=== PATIENT | male | born 1960 | race Caucasian/White ===

== ENCOUNTER 2019-08-12 17:43 | Emergency (ER) | payer OTHER ==
[~2019-08-12] VITALS: Ht 175.3 cm; Wt 81.8 kg
[2019-08-12 18:05] VITALS: Ht 175.3 cm; Wt 81.8 kg
[2019-08-12] MEDS ORDERED: ATIVAN0.5 MG (18:05)
[2019-08-12 20:43] VITALS: BP 115/83
== END 2019-08-12 20:44 | disposition home or self-care (01) ==
LOC: D.ER 17:43
DX: S16.1XXA Strain of muscle, fascia and tendon at neck level, initial encounter (principal); F41.9 Anxiety disorder, unspecified; M50.30 Other cervical disc degeneration, unspecified cervical region

== ENCOUNTER 2019-10-08 13:42 | Emergency (ER) | payer OTHER ==
[~2019-10-08] VITALS: Ht 175.3 cm; Wt 81.8 kg
[~2019-10-08 13:42] MED LIST: ATIVAN0.5 MG
[2019-10-08 13:52] VITALS: Ht 175.3 cm; Wt 81.8 kg
[2019-10-08] MEDS ORDERED: CLEOCIN HCL300 MG PO (15:48)
[2019-10-08 16:05] VITALS: BP 114/81
== END 2019-10-08 16:07 | disposition home or self-care (01) ==
LOC: D.ER 13:42
DX: S61.532A Puncture wound without foreign body of left wrist, initial encounter (principal); Y92.9 Unspecified place or not applicable; Y93.9 Activity, unspecified; X58.XXXA Exposure to other specified factors, initial encounter

== ENCOUNTER 2019-11-05 16:44 | Observation (INO) | payer OTHER ==
[~2019-11-05] VITALS: Ht 175.3 cm; Wt 84.1 kg
[~2019-11-05 16:44] MED LIST changes: +CLEOCIN HCL300 MG PO
[2019-11-05 18:58] VITALS: BP 128/85; Ht 175.3 cm; Wt 84.1 kg
[2019-11-05 20:00] VITALS: BP 113/71
--- NOTE | 2019-11-05 21:00 | NUR ---
A&O X 4. AMBULATES AD DIANA. REPORTS PAIN LEVEL OF 6/10. VERBALIZED UNDERSTANDING OF NPO STATUS AFTER MIDNIGHT. CONSENTS SIGNED AND WITNESSED BY MYSELF AND SHASHI PITT. REMOVED FROM IV FOR HIBICLENS. NO FURTHER NEEDS VOICED AT THIS TIME. CONTINUE PLAN OF CARE.
[2019-11-06] VITALS: BP 130/78
[2019-11-06 04:00] VITALS: BP 113/75
--- NOTE | 2019-11-06 04:46 | NUR ---
I have reviewed this patient and I concur with the Shift Assessment completed by the Licensed Practical Nurse today this shift.
[2019-11-06 05:28] LABS: BASOPHILS 0.2 % (0-2); EOSINOPHILS 1.6 % (0-7); HEMATOCRIT 46.1 % (42.0-54.0); HEMOGLOBIN 14.7 g/dL (13.5-17.5); IMMATURE GRANULOCYTES 0.1 % (0-5); MCH 31.1 pg (26.0-34.0); MCHC 31.9 g/dL (31.0-37.0); MCV 97.7 fL (80.0-100.0); MEAN PLATELET VOLUME 10.3 fL (7.4-10.4); MONOCYTES 11.4 % (2-11); NEUTROPHILS 51.7 % (40-80); PLATELET COUNT 238 10x3/uL (130-400); RBC 4.72 10x6/uL (4.20-6.10); RDW 12.6 % (11.5-14.5); WBC 8.7 10x3/uL (4.8-10.8)
[2019-11-06 05:49] LABS: ANION GAP 9.5 mmol/L (8-16); CALCIUM 8.8 mg/dL (8.5-10.1); CARBON DIOXIDE 28.5 mmol/L (21.0-32.0); CREATININE - SERUM 1.3 mg/dL (0.6-1.3); PHOSPHOROUS 3.5 mg/dL (2.5-4.9)
--- NOTE | 2019-11-06 07:15 | NUR ---
REC'D IN BED AWAKE AND ALERT. RESP EVEN AND UNLABORED WITH NO DISTRESS NOTED. CAN VOICE NEEDS AND WANTS. ASSESSMENT COMPLETED. C/L IN REACH AT BEDSIDE.
[2019-11-06 08:55] VITALS: BP 116/77
--- NOTE | 2019-11-06 11:50 | HP ---
PATIENT: CHELSY VICK MEDICAL RECORD: [id number] ACCOUNT: [id number] LOCATION:[id number] : 58 ADMISSION DATE: 11/05/19 PCP: TRACI GRAVES MD HISTORY AND PHYSICAL EXAMINATION CHIEF COMPLAINT: Hemorrhoids. HISTORY OF PRESENT ILLNESS: The patient has longstanding hemorrhoidal problems. He has circumferential grade IV hemorrhoidal prolapse. He is being admitted for intractable pain. I will put him on a Dilaudid EMERGENCY DEPT TECH. I going to plan for a procedure for prolapse and hemorrhoids, possible hemorrhoidectomy tomorrow. The risks, possible complications and alternatives to the procedure were explained to the patient. He elects to proceed. The discussion specifically included, but was not limited to, bleeding requiring emergency reoperation, infection, recurrent hemorrhoidal problems, anal stenosis, fecal incontinence. He elects to proceed. PAST MEDICAL AND SURGICAL HISTORY: History of hepatitis C, anxiety disorder. HOME MEDICINES: Ativan. REVIEW OF SYSTEMS: No fever, no dry eyes, no ear pain, no cough, no wheezing, no abdominal pain. PHYSICAL EXAMINATION: GENERAL: The patient does not appear acutely ill. He does not appear chronically ill. VITAL SIGNS: Reviewed. EARS: External ears appear normal. EYES: Extraocular movements are intact. NECK: Trachea is midline. CHEST: No intercostal retractions. PULMONARY: Nonlabored, no stridor. ABDOMEN: Nontender. IMPRESSION: Circumferential grade IV hemorrhoidal prolapse. PLAN: Procedure for prolapse and hemorrhoids, possible hemorrhoidectomy. TRANSINT:[id number] Voice Confirmation ID: [id number] DOCUMENT ID: [id number] JENIFER SAHA MD at 1150 CC: TRACI GRAVES MD [id number] DICTATION DATE: 11/05/19 1709 MANAGER STUDY: 11/05/19 1731 ADM IN [facility] [id number] [place] [address]
--- NOTE | 2019-11-06 12:00 | NUR ---
RETURN FROM SURGERY SUITE WITH NO DISTRESS NOTED. AWAKE AND ALERT. RESP EVEN AND UNLABORED WITH NO DISTRESS NOTED. CAN EXPRESS NEEDS AND WANTS. PACKING INTACT. C/L IN REACH AT BEDSIDE.
[2019-11-06 12:47] VITALS: BP 123/78
[2019-11-06] MEDS ORDERED: COLACE100 MG PO (12:54)
[2019-11-06] MEDS ORDERED: ULTRAM50 MG PO (12:55)
[2019-11-06] MEDS ORDERED: VALIUM5 MG PO (12:57)
--- NOTE | 2019-11-06 13:01 | NUR ---
UPON ADMIT, NO FLU SHOT SEEN. WHEN QUESTIONED AT DISCHARGE, PATIENT REFUSED IT.
--- NOTE | 2019-11-06 16:00 | NUR ---
DC HOME AT THIS TIME VOICE UNDERSTANDING OF DC INSTRUCTION. IV DC. STABLE CONDITION UPON DEPARTURE.
--- NOTE | 2019-11-07 15:14 | OP ---
PATIENT NAME: CHELSY VICK MEDICAL RECORD: [id number] :58 LOCATION:[id number] ADMISSION DATE:11/05/19 SURGEON: JAKE SAHA MD DATE OF OPERATION: 11/06/2019 PREOPERATIVE DIAGNOSES: 1. Intractable symptomatic hemorrhoids. 2. Hematochezia. 3. Circumferential grade IV hemorrhoids with impending gangrene. POSTOPERATIVE DIAGNOSES: 1. Intractable symptomatic hemorrhoids. 2. Hematochezia. 3. Circumferential grade IV hemorrhoids with impending gangrene. 4. Persistent third degree prolapse of a hemorrhoid after the procedure for prolapse and hemorrhoids. PROCEDURE: 1. Procedure for prolapse and hemorrhoids. 2. Single column hemorrhoidectomy with closure. SURGEON: Jake Saha MD WALL INSULATION SPRAYER: None. BLOOD LOSS: Minimal. ANESTHESIA: General. COMPLICATIONS: None. The risks, possible complications, and alternatives to the procedure were explained to the patient. He elects to proceed. The discussion specifically included, but was not limited to, bleeding requiring emergency reoperation and infection. The patient had to be admitted the night before surgery due to intractable pain, OPERATIVE COURSE: The patient was conveyed to the operating room electively on 11/06/2019. General anesthesia was induced by the anesthesia staff. The patient was placed in the lithotomy position. The buttocks were taped laterally. The anus and perineum were sterilely prepped and draped. The PPH dilator retractor was placed. The retractor was sewn to the surrounding anoderm with 2-0 silks. I then applied a mucosal pursestring suture 1 cm cephalad to the clear retractor. I advanced the PPH stapling device with the anvil cephalad to the pursestring suture, which was then tightened and tied. The stapling device was engaged. It was held in place for 3 minutes and then fired. It was then removed. There was an entire donut of mucosal and hemorrhoidal tissue within the stapling device. Bleeding along the anastomotic staple line was controlled with [id number] 3-0 Vicryls. There was an internal hemorrhoidal bundle at 7 o'clock, which I performed a suture ligation of. There is also a very large persistently OPERATIVE REPORT [id number] CHELSY VICK prolapsed hemorrhoid, that went from 1 o'clock to 5 o'clock. I elected to perform hemorrhoidectomy. A suture ligature of 3-0 Vicryl was applied at the apex of the internal hemorrhoid. I then incised the anoderm with the Harmonic scalpel. I swept down the internal and external sphincters. They were undamaged during the procedure. I then excised the hemorrhoid through the use of double curvilinear excisions, utilizing the Harmonic scalpel. At no time was there any apparent sphincteric injury. Submucosal flaps were created sharply. The same 3-0 Vicryl suture ligature was then run in a running locking fashion out to the anoderm and then in a running fashion out to the anoderm and then tied. Some reinforcing horizontal mattress of 3-0 Vicryls were then applied within the anus. Gelfoam was applied within the anus and lower rectum. A combination of steroid preparation and Marcaine were used to infiltrate the perianal tissues. A topical anesthetic cream was applied to the external hemorrhoids. The patient was then extubated and conveyed to post-anesthesia care unit where he was in stable condition. TRANSINT:[id number] Voice Confirmation ID: [id number] DOCUMENT ID: [id number] JAKE SAHA MD at 1514 CC: [id number] DICTATION DATE: 11/06/19 1351 SYSTEM SOFTWARE DEVELOPER: 11/06/192221 DIS IN 11/06/19 [facility] [address] [place] [address]
== END 2019-11-06 16:08 | disposition home or self-care (01) ==
LOC: OBSVTIME 16:44 → D.MS 16:44
PROVIDERS: ADMIT Surgery; ATTEND Surgery
DX: K64.3 Fourth degree hemorrhoids (principal); K92.1 Melena